=== PATIENT | male | born 1965 | race Caucasian/White ===

== ENCOUNTER → 2018-01-21 14:22 | Outpatient (CLI) | payer OTHER, SELFPAY ==
[2018-01-21 15:38] LABS: CREATININE 0.99 mg/dL (0.70-1.30)
== END ==
PROVIDERS: PCP Family Medicine; Visit Provider Otolaryngology
DX: C13.9 Malignant neoplasm of hypopharynx, unspecified (principal)
CPT/HCPCS: 36415; 82565

== ENCOUNTER 2018-09-12 17:33 | Outpatient (REF) | payer OTHER, SELFPAY ==
--- NOTE | 2018-09-12 11:00 | SKI_PTH ---
PATIENT: Jack Tredawell LOC: [facility] U#:[id number] AGE/SX: 53/M ROOM: RE09/12/[address]: Atilio Berrios : 1965 BED: DIS: 09/12/2018 SPEC #: [id number] RECD: 09/12/18 18:14 STATUS: GIO RE #: [id number] KADEEM: 09/12/18 11:[address]: Atilio Berrios DEPT: Surgical Specimen RECD BY: Evie Jasso Tissues: 1 - SKIN BIOPSY(SHAVE/PUNCH) Procedures: IMMUNOPEROXIDASE STAIN SKIN LEVEL 4 SPECIAL STAIN 1 Comments: [id number]
== END 2018-09-12 17:53 ==
LOC: NCHCN 17:33
PROVIDERS: PCP Family Medicine; Visit Provider Family Medicine
DX: L92.8 Other granulomatous disorders of the skin and subcutaneous tissue (principal); L90.5 Scar conditions and fibrosis of skin
CPT/HCPCS: 88305; 88312; 88361

== ENCOUNTER 2020-05-23 20:25 | Outpatient (REF) | payer OTHER, SELFPAY ==
[2020-05-23 13:52] LABS: HCT 40.8 % (40.0-50.0); HGB 14.8 g/dL (13.5-17.5); MCH 34.2 pg (27.0-33.0); MCHC 36.3 % (32.0-36.0); MCV 94.2 fL (80-95); MPV 10.4 fL (8.0-11.0); Platelet Count 216 10^3/uL (130-400); RBC 4.33 10^6/uL (4.36-5.78); RDW-SD 41.8 fL; WBC 8.07 10^3/uL (4.4-10.8)
[2020-05-23 14:08] LABS: ALT 32 U/L (16-63); AST 22 U/L (15-37); Albumin 4.3 g/dL (3.4-5.0); Alkaline Phosphatase 84 U/L (46-116); Anion Gap 8.4 mmol/L (3-11); BUN 17 mg/dL (7-18); Bilirubin, Total 0.8 mg/dL (0.2-1.0); CO2 26.6 mmol/L (21.0-32.0); CREATININE 1.09 mg/dL (0.70-1.30); Chloride 104 mmol/L (98-107); Glucose 103 mg/dL (74-106); Sodium 139 mmol/L (136-145); Total Protein 7.3 g/dL (6.4-8.2)
== END 2020-05-23 20:45 ==
LOC: NCHCN 20:25
PROVIDERS: PCP Family Medicine; Visit Provider Family Medicine
DX: I10 Essential (primary) hypertension (principal); F10.99 Alcohol use, unspecified with unspecified alcohol-induced disorder
CPT/HCPCS: 80053; 85027

== ENCOUNTER 2021-06-11 19:23 | Outpatient (REF) | payer OTHER, SELFPAY ==
[2021-06-11 19:39] LABS: ALT 36 U/L (16-63); AST 24 U/L (15-37); Albumin 4.1 g/dL (3.4-5.0); Alkaline Phosphatase 89 U/L (46-116); BUN 31 mg/dL (7-18); Bilirubin, Total 0.3 mg/dL (0.2-1.0); CO2 25.8 mmol/L (21.0-32.0); CREATININE 1.2 mg/dL (0.70-1.30); Calcium 8.9 mg/dL (8.5-10.1); Chloride 105 mmol/L (98-107); Glucose 113 mg/dL (74-106); Total Protein 7.2 g/dL (6.4-8.2)
[2021-06-11 19:45] LABS: Anion Gap 10.2 mmol/L (3-11); Potassium 3.9 mmol/L (3.5-5.1); Sodium 141 mmol/L (136-145)
== END 2021-06-11 19:24 | disposition home or self-care (01) ==
LOC: LBN 19:23
PROVIDERS: PCP Family Medicine; Visit Provider Family Medicine
DX: I10 Essential (primary) hypertension (principal)
CPT/HCPCS: 80053

== ENCOUNTER 2021-11-24 13:51 | Outpatient (CLI) | payer OTHER, SELFPAY ==
[2021-11-24 14:14] LABS: TSH 10.09 uIU/mL (0.36-3.74)
== END 2021-11-24 13:52 | disposition home or self-care (01) ==
LOC: LBO 13:55
PROVIDERS: PCP Family Medicine; Visit Provider Preventive Medicine Undersea and Hyperbaric Medicine
DX: C12 Malignant neoplasm of pyriform sinus (principal); I10 Essential (primary) hypertension
CPT/HCPCS: 36415; 84443

== ENCOUNTER 2022-03-17 18:05 | Outpatient (REF) | payer OTHER, SELFPAY ==
[2022-03-17 19:44] LABS: Anion Gap 9.7 mmol/L (3-11); BUN 22 mg/dL (7-18); CO2 27.3 mmol/L (21.0-32.0); CREATININE 1.1 mg/dL (0.70-1.30); Calcium 9.2 mg/dL (8.5-10.1); Calculated LDL 117 mg/dL (<100); Chloride 104 mmol/L (98-107); Cholesterol 262 mg/dL (<200); Estimated GFR 79.28 (mL/min/1.73m2); Glucose 113 mg/dL (74-106); HDL Cholesterol 72 mg/dL (40-60); Potassium 3.7 mmol/L (3.5-5.1); Sodium 141 mmol/L (136-145); TSH (W/Ref FT4) 8.63 uIU/mL (0.36-3.74); Triglyceride 366 mg/dL (<150)
[2022-03-17 20:04] LABS: FREE T4 0.72 ng/dL (0.76-1.46)
== END 2022-03-17 18:06 | disposition home or self-care (01) ==
LOC: NCHCN 18:05
PROVIDERS: PCP Family Medicine; Visit Provider Family Medicine
DX: I10 Essential (primary) hypertension (principal); E03.9 Hypothyroidism, unspecified; Z00.00 Encounter for general adult medical examination without abnormal findings
CPT/HCPCS: 80048; 80061; 84439; 84443

== ENCOUNTER 2022-05-08 06:54 | Day surgery (SDC) | payer OTHER, SELFPAY ==
--- NOTE | 2022-05-08 06:58 | W.COLOREPORT ---
Date of service: 05/08/22 Time of Service: 09:56 Colonoscopy Report Date of procedure: 05/08/22 Pre-op diagnosis general: screening colonoscopy Post-op diagnosis procedure note: same Procedure: Colonoscopy Surgeon: Katelyn Ayala Anesthesia Type: General:No Airway Estimated blood loss (mL): 0 Pathology: none sent Complications: None Disposition: same day Indications: ?The patient? is a pleasant? 56-year-old male who is here to discuss his first screening colonoscopy. ? He denies any changes in bowel habits, melena, hematochezia, unintentional weight loss or family history of colon cancer.? The procedure and risks were discussed.? The prep was reviewed in detail.? Risks, benefits and complications have been reviewed. Complications include but are not limited to bleeding, pain, perforation, missed small lesion/polyp, sore throat, aspiration and adverse reaction to the medications. Questions were entertained and answered to their satisfaction and they wished to proceed. No guarantees were given or implied. Prep: Miralax/Dulcolax Procedure Start Time: :56 Procedure End Time: 10:16 Retraction Time: 12 minutes Findings: Normal colon Procedure Description: After informed consent was obtained the patient was taken to the procedure room and placed in a left decubitous position. Monitors were applied and a time out was done. The patients name, date of , procedure, allergies to medications and metal in their body was reviewed. The patient was then sedated. Once sedated and comfortable a rectal exam was done. External exam was normal. Internal exam revealed a normal sphincter tone and no palpable masses. The prostate felt smooth. The scope was then introduced and retro-flexed. No internal hemorrhoids, polyps or masses were identified on retro-flexion. The scope was then advanced to the cecum without difficulty. The ileocecal valve and appendiceal orifice were identified. The prep was adequate. The scope was then slowly retracted over 12 minutes back into the rectum. There were no Polyps. There was no diverticulosis noted. The scope was removed and the patient was woken up and taken back to Same day surgery in stable condition. The patient tolerated the procedure well and there were no immediate complications. Follow up: The patient should follow up in 10 years unless they develop changes in bowel habits or other new gastrointestinal complaints.
--- NOTE | 2022-05-08 07:02 | W.PM.DSUDISC ---
Date of service: 05/08/22 Time of Service: 09:56 Discharge Plan Disposition Patient Disposition: HOME Condition: Good Discharge Details Reason For Visit: colon cancer screening Attending Provider: Katelyn Ayala Primary Care Provider: Atilio Berrios Home Meds and New Rx's Prescriptions: Continued metoprolol succinate [Toprol XL] 100 MG tablet extended release 24 hr 100 mg PO DAILY cholecalciferol (vitamin D3) [Vitamin D3] 2,000 UNIT capsule 2,000 unit PO DAILY multivitamin Tablet 1 tab PO DAILY sertraline 25 mg tablet 100 mg PO DAILY minoxidil 10 MG tablet 10 mg PO DAILY ibuprofen 800 MG tablet 800 mg PO TID PRN Qty: 30 0RF Label Comments: Its been awhile levothyroxine 50 mcg Tablet 50 mcg PO DAILY Discontinued bisacodyl [Dulcolax (bisacodyl)] 5 mg tablet,delayed release (DR/EC) 5 mg PO ONCE Qty: 4 0RF Rx Instructions: Take according to provider's instructions for colonoscopy prep. polyethylene glycol 3350 17 gram/dose powder 17 g PO ONCE Qty: 238 0RF Rx Instructions: To be taken as directed by prescriber's office for colonoscopy prep. Discharge Instructions Additional Instructions: Findings: Normal colonoscopy Follow up: 10 years Please call if you develop: fevers >101.5 Nausea or Vomiting Abdominal pain that is not transient Rectal bleeding that is more then a tbsp A hard abdomen and inability to pass gas DAY SURGERY UNIT POST ENDOSCOPY INSTRUCTIONS Instructions for everyone who is given Anesthesia: For your safety, please do the following for the next 24 Hours: a. Do not drive or operate dangerous equipment b. Do not drink alcohol beverages or use any recreational drugs for the first 24 hours or while taking pain medications. The medications in your body may have a reaction that can be dangerous. c. Do not make any important decisions or sign any important papers 1. Generally there are no restrictions on your activity after a day or so has gone by, but you may feel a bit fatigued for a few days. 2. After you arrive home you may have a light meal and return to a normal diet as you can tolerate it without feeling sick to your stomach. 3. After surgery, you may feel pain or discomfort. This should be only transient, but if it persists please contact your doctor. 4. If there are any questions regarding the findings of your procedure, please feel free to contact your doctor. 6. If you are unable to contact your doctor with a problem, contact the hospital at [phone]. 7. Continue all your regular medications unless directed otherwise. I understand the above instructions and have no questions. Signature of Patient or Responsible Adult Escort Date/Time Name of Responsible Adult Escort Signature of Nurse Date/Time Activity:: Activity as Tolerated Equipment/Supplies:: No Equipment Needed Diet:: As Tolerated
[2022-05-08 07:23] VITALS: BP 136/86; PULSE 97; RESP 16; TEMP 36.3; O2SAT 98
[2022-05-08] MEDS: Lactated Ringers 1,000 ML 80 ML IV (07:55)
--- NOTE | 2022-05-08 09:16 | W.ANESPRE ---
General Info Date of Service Date Performed: 05/08/22 Height: 5 ft 4 in Weight: 72.3 kg Body Mass Index (BMI): 27.3 Surgical Procedure: Operation Date: 05/08/22 08:35 Proposed Procedure Side Surgeon p Rebecca Ayala MD Meds Allergies and Home Medications Allergies Allergy/AdvReac Type Severity Reaction Status Date / Time odalys flavor Allergy Intermediate Swelling/Ed Unverified 05/08/22 07:19 lenore Home Medication Medication Instructions Recorded ibuprofen 800 mg tablet 800 mg PO TID PRN #30 tabs 09/25/13 minoxidil 10 mg tablet 10 mg PO DAILY 09/25/13 cholecalciferol (vitamin D3) 50 2,000 unit PO DAILY 03/14/14 mcg (2,000 unit) capsule (Vitamin D3) metoprolol succinate 100 mg 100 mg PO DAILY 03/14/14 tablet,extended release 24 hr (Toprol XL) multivitamin 1 tab PO DAILY 07/04/21 sertraline 25 mg tablet 100 mg PO DAILY 07/04/21 bisacodyl 5 mg tablet,delayed 5 mg PO ONCE #4 tabs 04/21/22 release (Dulcolax (bisacodyl)) polyethylene glycol 3350 17 17 g PO ONCE #238 grams 04/21/22 gram/dose oral powder levothyroxine 50 mcg tablet 50 mcg PO DAILY 05/08/22 Current Visit Medications: Current Medications Generic Name Dose Route Start Last Admin Trade Name Freq PRN Reason Stop Dose Admin Hyoscyamine Sulfate 0.125 mg 05/08/22 07:03 Hyoscyamine 0.125 Mg Sl/Oral/Chew SL DIRECTED PRN Ringer's Solution 1,000 mls @ 80 mls/hr 05/08/22 06:00 05/08/22 07:55 IV 06/06/22 23:59 80 mls/hr INFUSION ALFREDO Administration IV Miscellaneous Supplies 1 each 05/08/22 06:00 Iv Access IV 06/06/22 23:59 DIRECTED ALFREDO Ondansetron HCl 4 mg 05/08/22 07:03 Ondansetron 4 Mg/2 Ml Vial IVP Q4H PRN PRN Nausea / Vomiting Sodium Chloride 0 ml 05/08/22 06:00 Normal Saline Flush 10 Ml Syr IV 06/06/22 23:59 PRN PRN Sodium Chloride 0 ml 05/08/22 06:00 Normal Saline 10 Ml Vial IJ 06/06/22 23:59 DIRECTED PRN Sterile Water 0 ml 05/08/22 06:00 Water,Injection,Sterile 10 Ml Vial IJ 06/06/22 23:59 DIRECTED PRN PFSH Active Problems Active Problems: Problem Status Onset Code Screening for colon cancer Z12.11 Alcohol use Z72.89 Hypertension I10 Medical History Medical History Alopecia Anxiety disorder Contact dermatitis Former smoker Genital herpes simplex Hx antineoplastic chemo Primary squamous cell carcinoma of head and neck Surgically removed approx 4-5 years ago at [facility] [place] Throat cancer Throat cancer Vitamin D deficiency Medical History Comments:: 3+ beers a day, Daily marijuana. Tobacco Smoking/Tobacco Use Status: Former Tobacco Use Alcohol Alcohol Intake: current Alcohol intake frequency: 3 or more drinks per day Alcohol type: beer Substance Use Substance use: Daily Substance use type: marijuana Details: Marijuana - smoked 05/07/22 Vital Signs and Lab Results Vital Signs Most Recent Vital Signs in EMR: Most Recent Vital Signs Temp Pulse Resp BP Pulse Ox 36.3 C L 97 H 16 136/86 98 05/08/22 07:23 05/08/22 07:23 05/08/22 07:23 05/08/22 07:23 05/08/22 07:23 Lab Results Blood Type / Crossmatch: No Data to Display Complete Blood Count: No Data to Display Complete Metabolic Panel: No Data to Display Liver Function Panel: No Data to Display Coagulation Panel: No Data to Display Cardiac Panel: No Data to Display Arterial Blood Gas: No Data to Display Venous Blood Gas: No Data to Display Pancreas Panel: No Data to Display Thyroid Panel: No Data to Display Infectious Disease: No Data to Display Blood Cultures: No Data to Display Toxicology Panel: No Data to Display Anesthesia Assessment and Plan Anesthesia History Personal History: No History of Anesthesia Complications Family History: No Family History of Anesthesia Complications Exercise Tolerance Exercise Tolerance: Metabolic Equivalents>4 Pertinent Negatives Pertinent Negatives: No Symptoms of GERD, No Major Cardiovascular Symptoms or Complaints and No Major Pulmonary Symptoms or Complaints Cardiac & Pulmonary Exam Cardiac Exam: Normal S1/S2 Heart Sounds Pulmonary Exam: Clear Bilateral Breath Sounds Implantable Cardiac Device Does patient have a Pacemaker or an ICD?: No Airway Exam Known Difficult Airway: No Mallampati Class: 1 Mouth Opening: Normal (> 3cm) Thyromental Distance: Greater than 3 cm Neck Range of Motion: Full ROM Neck Circumference: Normal Teeth Condition: Normal Dentition ASA Classification ASA Score: ASA 2 Emergency Case?: No NPO Status NPO Status: NPO Clears >2 hours, Solids >8 hours Anesthesia Plan Resuscitation Status: Full Code Anesthesia Technique: General Anesthesia Airway Planned: Natural Airway Monitors Used: Standard Monitors
[2022-05-08 09:34] VITALS: BMI 27.3
[2022-05-08 10:23] VITALS: BP 150/86; PULSE 75; RESP 18; TEMP 36.5; O2SAT 99
[2022-05-08 10:47] VITALS: BP 162/97; PULSE 63; RESP 16; TEMP 36.4; O2SAT 100
--- NOTE | 2022-05-08 10:50 | W.ANESPOSTOP ---
Postoperative Evaluation Date, Time and Location Date Performed: 05/08/22 Time Performed: 10:32 Patient Location: Day Surgery Unit Vital Signs Most Recent Imported Vital Signs: Most Recent Vital Signs Temp Pulse Resp BP Pulse Ox 36.4 C L 63 16 150/86 H 100 05/08/22 10:47 05/08/22 10:47 05/08/22 10:47 05/08/22 10:23 05/08/22 10:47 Pain Score Most Recent Pain Score: Most Recent Pain Score Pain Level 0 05/08/22 10:47 Assessment Mental Status: Awake (Alert & Oriented to Patient Baseline) Airway and Respiratory Function: Patent airway with normal (patient baseline) respiratory exam Cardiovascular Function: Hemodynamically Stable Hydration Status: Adequately Hydrated Nausea & Vomiting: No Nausea or Vomiting Pain: Pt. Denies Any Pain Peripheral Nerve Block: Patient did not receive a nerve block
== END 2022-05-08 11:03 | disposition home or self-care (01) ==
PROVIDERS: PCP Family Medicine; Visit Provider Surgery
PROC: 0DJD8ZZ Inspection of Lower Intestinal Tract, Via Natural or Artificial Opening Endoscopic (ICD-10-PCS; CPT 45378; principal; 2022-05-08 08:30)
DX: Z12.11 Encounter for screening for malignant neoplasm of colon (principal); I10 Essential (primary) hypertension; F10.90 Alcohol use, unspecified, uncomplicated
CPT/HCPCS: 45378

== ENCOUNTER 2022-05-21 17:39 | Outpatient (REF) | payer OTHER, SELFPAY ==
[2022-05-21 16:45] LABS: TSH (W/Ref FT4) 1.93 uIU/mL (0.36-3.74)
== END 2022-05-21 17:40 | disposition home or self-care (01) ==
LOC: NCHCN 17:39
PROVIDERS: PCP Family Medicine; Visit Provider Family Medicine
DX: E03.9 Hypothyroidism, unspecified (principal)
CPT/HCPCS: 84443

== ENCOUNTER 2023-07-01 11:23 | Outpatient (REF) | payer OTHER, SELFPAY ==
[2023-07-01 15:25] LABS: HCT 41.2 % (40.0-50.0); HGB 14.9 g/dL (13.5-17.5); MCH 32.8 pg (27.0-33.0); MCHC 36.2 % (32.0-36.0); MCV 91 fL (80-95); MPV 9.9 fL (8.0-11.0); Platelet Count 217 10^3/uL (130-400); RBC 4.54 10^6/uL (4.36-5.78); RDW 12.2 % (11.8-14.1); RDW-SD 40.3 fL; WBC 8.45 10^3/uL (4.4-10.8)
[2023-07-01 16:05] LABS: ALT 27 U/L (16-63); AST 20 U/L (15-37); Alkaline Phosphatase 78 U/L (46-116); Anion Gap 10.3 mmol/L (3-11); BUN 19 mg/dL (7-18); Bilirubin, Total 0.6 mg/dL (0.2-1.0); CO2 26.7 mmol/L (21.0-32.0); CREATININE 1.1 mg/dL (0.70-1.30); Calcium 9.3 mg/dL (8.5-10.1); Chloride 105 mmol/L (98-107); Glucose 110 mg/dL (74-106); Potassium 4.2 mmol/L (3.5-5.1); Sodium 142 mmol/L (136-145); TSH (W/Ref FT4) 2.69 uIU/mL (0.36-3.74); Total Protein 6.8 g/dL (6.4-8.2)
[2023-07-01 16:21] LABS: Vitamin D 25 Total 30.8 ng/mL (30-100)
== END 2023-07-01 11:24 | disposition home or self-care (01) ==
LOC: NCHCN 11:23
PROVIDERS: PCP Family Medicine; Visit Provider Family Medicine
DX: E03.9 Hypothyroidism, unspecified (principal); E55.9 Vitamin D deficiency, unspecified; F10.10 Alcohol abuse, uncomplicated
CPT/HCPCS: 80053; 82306; 85027; 84443

== ENCOUNTER 2024-08-02 16:26 | Outpatient (REF) | payer OTHER, SELFPAY ==
[2024-08-02 19:38] LABS: Abs Immature Grans 0.03 10^3/uL (0.0-0.06); Absolute Basophil Count 0.04 10^3/uL (0.0-0.2); Absolute Eosinophil Count 0.08 10^3/uL (0.0-0.7); Absolute Monocyte Count 0.84 10^3/uL (0.1-0.8); Absolute Neutrophil Count 8.02 10^3/uL (1.2-6.7); Basophils % 0.4 %; Eosinophils % 0.8 %; HCT 41.3 % (40.0-50.0); HGB 14.8 g/dL (13.5-17.5); Immature Grans % 0.3 %; MCH 33.3 pg (27.0-33.0); MCHC 35.8 % (32.0-36.0); MCV 93 fL (80-95); MPV 9.9 fL (8.0-11.0); Monocytes % 8.4 %; Neutrophils % 80.1 %; Platelet Count 223 10^3/uL (130-400); RBC 4.45 10^6/uL (4.36-5.78); RDW 12.2 % (11.8-14.1); WBC 10.01 10^3/uL (4.4-10.8)
[2024-08-02 19:58] LABS: ALT 31 U/L (16-63); AST 22 U/L (15-37); Albumin 4.1 g/dL (3.4-5.0); Alkaline Phosphatase 84 U/L (46-116); BUN 18 mg/dL (7-18); Bilirubin, Total 0.49 mg/dL (0.2-1.0); Calcium 9.3 mg/dL (8.5-10.1); Chloride 107 mmol/L (98-107); Estimated GFR 87.24 (mL/min/1.73m2); FREE T4 0.79 ng/dL (0.76-1.46); Glucose 92 mg/dL (74-106); Potassium 3.9 mmol/L (3.5-5.1); Sodium 145 mmol/L (136-145); TSH 3.55 uIU/mL (0.36-3.74); Total Protein 6.8 g/dL (6.4-8.2)
[2024-08-02 20:40] LABS: Vitamin D 25 Total 37.2 ng/mL (30-100)
== END 2024-08-02 16:27 | disposition home or self-care (01) ==
LOC: NCHCN 16:26
PROVIDERS: PCP Family Medicine; Visit Provider Student in an Organized Health Care Education/Training Program
DX: I10 Essential (primary) hypertension (principal); E03.9 Hypothyroidism, unspecified; E55.9 Vitamin D deficiency, unspecified
CPT/HCPCS: 80053; 82306; 84439; 84443; 85025

== ENCOUNTER 2024-12-25 14:36 | Outpatient (REF) | payer OTHER, SELFPAY | END 2024-12-25 14:37 | disposition home or self-care (01) | LOC: LBN 14:36 | PROVIDERS: PCP Family Medicine; Visit Provider Nurse Practitioner Family | DX: L98.9 Disorder of the skin and subcutaneous tissue, unspecified (principal) | CPT/HCPCS: 87070; 87205 ==